=== PATIENT | male | born 1970 | race Two or more races ===

== ENCOUNTER 2020-01-14 09:09 | Emergency (ER) | payer OTHER ==
[~2020-01-14] VITALS: Ht 182.9 cm; Wt 100.0 kg
[2020-01-14 11:26] VITALS: BP 118/72
== END 2020-01-14 11:27 | disposition home or self-care (01) ==
LOC: EMS 09:11
DX: S01.111A Laceration without foreign body of right eyelid and periocular area, initial encounter (principal); X58.XXXA Exposure to other specified factors, initial encounter; Y93.89 Activity, other specified; Y92.89 Other specified places as the place of occurrence of the external cause; Y99.0 Civilian activity done for income or pay
CPT/HCPCS: 12011